=== PATIENT | male | born 1975 | race African-American/Black ===

== ENCOUNTER 2017-09-12 06:22 | Emergency (ER) | payer BC ==
[2017-09-12 07:09] LABS: Hemoglobin 13.2 gm/dL (13.5-18.0); Mean Cell Volume 81.1 fl (78-100); Mean Corpuscular Hemoglobin 27.4 pg (27-31); Mean Corpuscular Hgb Conc 33.8 g/dl (32-36); Mean Platelet Volume 10.6 fl (6.0-9.5); Neutrophil # 1.1 K/mm3 (1.3-6.0); Neutrophil % 14.8 % (42-75.0); Platelet Count 269 K/mm3 (150-450); Red Blood Count 4.81 M/mm3 (4.7-6.0); Red Cell Distribution Width 12.3 % (11.5-14.0); White Blood Count 7.3 K/mm3 (4.0-10.5)
[2017-09-12 07:20] LABS: INR 1.1 INR (0.90-1.10)
[2017-09-12 07:22] LABS: Albumin * 2.8 gm/dl (3.4-5.0); Anion Gap 16.9 mmol/L (6.8-13.8); BUN/Creatinine Ratio 10.4 (9.0-21.6); Bilirubin, Total 0.3 mg/dL (0.0-1.1); Ca. Corrected For Albumin 8.8 mg/dL (8.4-10.2); Calcium * 8.2 mg/dL (7.9-10.9); Carbon Dioxide 28.1 mmol/L (24-32.6); Total Protein 6.4 gm/dL (6.2-8.2)
[2017-09-12 07:24] LABS: Troponin I 0.038 ng/ml (0.00-0.10)
--- NOTE | 2017-09-12 07:36 | ERNOTE ---
Cardiopulmonary Resuscitation Presenting Symptoms: found unresponsive Time Seen by Provider: 09/12/17 06:22 Source: family, EMS Exam Limitations: clinical condition Allergies/Adverse Reactions: Allergies No Known Allergies Allergy (Unverified 10/20/13 17:04) Home Medications: HOME MEDICATIONS Furosemide [Lasix] 40 mg PO BID 06/23/12 [Last Taken 10/20/13] Lisinopril/Hydrochlorothiazide [Lisinopril-Hctz 20-25 mg Tab] 1 each PO BID 09/03 [Last Taken 10/20/13] Metformin HCl 1,000 mg PO BID 06/23/12 [Last Taken 10/20/13] Narrative: Pt found by this AM with agonal respirations and unresponsive. Pt arrived by EMS with CPR in progress, they found v-fib with one shock in the ambulance. Down time before ACLS:: 22 min Context: Present: other Initial Findings by EMS - Mentation: unresponsive Initial Findings by EMS - Respirations: agonal Initial Findings by EMS - Pulse: none Initial Findings by EMS - Rhythm: vfib Treatment GUNNERY/ORDNANCE OFFICER:: Present: defib, IV/IO Review of Systems - Narrative Narrative: ROS taken from pt's . - Review of Systems Constitutional: Present: recent illness - recent "cold" Respiratory: Present: shortness of breath - thought that he was retaining more fluid Psych: Present: other - increased stress in his life lately - Patient's Past Medical History Patient History - Medical: Diabetes Type 2 Patient History - Cardiac/Respiratory: CHF, Hypertension, Sleep Apnea Patient History - Cancer: History Unknown Patient History - Surgical Procedures: Noncontributory Physical Exam - Physical Exam General Appearance: Present: other - unresponsive - CPR in progress Respiratory: Present: decreased breath sounds, rhonchi Extremity Exam: Present: extremity edema Neurological Exam: Present: other - unresponsive Skin Exam: Present: cool/dry - cracked feet ED Progress - Results and Orders Patient's Lab Results:: I have reviewed the patient's lab results. Results and Orders: Laboratory Tests 09/12/17 09/12/17 09/12/17 07:00 07:00 07:00 WBC 7.3 Hgb 13.2 L Hct 39.0 L Plt Count 269 Lymphocytes % 66.9 H PT 11.0 INR (Anticoag Therapy) 1.10 PTT ([facility]) 25.0 Sodium 138 Potassium 3.0 L Chloride 96 L Carbon Dioxide 28.1 BUN 17 Creatinine 1.63 H Random Glucose 573 H* Calcium 8.2 Total Bilirubin 0.3 AST 111 H ALT 97 H Alkaline Phosphatase 69 Troponin I 0.038 Total Protein 6.4 Albumin 2.8 L - X-Ray X-Ray #1 X-Ray: chest Interpretation: Interp. by ne X-ray Comments: cardiomegaly, poor inspiration, ET tube at the [facility]. - Progress/Reassessment Progress Note-Subjective: 09/12/17 08:19 Pt arrived in asystole, and was intermittently found to be in v-fib, pt received 6 defibrilation shocks without ROSC. Pt was given amiodarone 300 mg and 150 mg and epinephrine q3-4 minutes as well as one ampule of bicarbonate. Pt continued in asystole and his condition was comunicated to his family throughout the process. At 07:16 the patient continued to be in asystole and resuscitation attempts were halted with family present. Procedures Date and Time: 09/12/17 06:32 Intubation Method: endotrachial with venti - on first attempt Tube Size (cm): 8.0 Breath Sounds after Intubation: equal Intubation Complications: no complications Post Intubation Xray: Yes - good placement Complications: other - good breath sounds and good change with colormetric CO2 detector Departure Clinical Impression: Cardiopulmonary arrest, Diabetes mellitus type 2 in obese - Departure Disposition: Condition: Referrals: Leeann Dennis, KACEY [Primary Care Provider] - Critical Care Time - Critical Care Critical Time Spent:: Yes Total time (mins) Spent:: 54
== END 2017-09-12 09:35 | disposition expired ==
LOC: ER 06:22
DX: I46.9 Cardiac arrest, cause unspecified (principal); I11.0 Hypertensive heart disease with heart failure; I50.9 Heart failure, unspecified; E66.9 Obesity, unspecified; E11.9 Type 2 diabetes mellitus without complications